=== PATIENT | male | born 1980 | race American Indian/Alaskan Native ===

== ENCOUNTER 2021-12-06 18:38 | Emergency (ER) | payer SELFPAY ==
[2021-12-06 18:50] VITALS: BP 154/82
== END 2021-12-06 19:07 | disposition left against medical advice (07) ==
LOC: ED 18:38
DX: F41.0 Panic disorder [episodic paroxysmal anxiety] (principal); Z53.21 Procedure and treatment not carried out due to patient leaving prior to being seen by health care provider